=== PATIENT | female | born 1965 | race Caucasian/White ===

== ENCOUNTER 2022-04-10 11:11 | Inpatient (IN) ==
[2022-04-10] MEDS ORDERED: FUROSEMIDE 40 MG/4 ML VIAL IV STA (11:40)
[2022-04-10 11:50] LABS: INR 1.2; PT Patient Result 12.8 SECS (10.5-12.0); Partial Thromboplastin Time 26.3 SECS (23.7-32.9)
[2022-04-10 11:57] LABS: Calcium 8.7 MG/DL (8.5-10.1); Potassium 4.2 MMOL/L (3.5-5.1); Total Protein 7.7 G/DL (6.4-8.2)
[2022-04-10 12:04] LABS: Basophils % 0.4 % (0.0-0.8); Eosinophils # 0.1 10*3/uL (0.0-0.87); Eosinophils % 0.9 % (0.00-10.9); Hematocrit 39.5 VOL% (35.7-47.0); Hemoglobin 11.5 GM/DL (12.0-16.0); Immature Granulocytes % 0.4 %; Immature Granulocytes Absolute 0.03 #; Lymphocytes % 14.6 % (21.3-54.2); Mean Corpuscular HGB Conc 29.1 GM/DL (32-36); Mean Corpuscular Volume 91.2 FL (87-102); Mean Platelet Volume 11.4 FL (9.6-12.0); Monocytes # 0.6 10*3/uL (0.11-0.8); Monocytes % 8.5 % (1.7-12.7); Neutrophils % 75.2 % (38.7-73.9); Platelet Count 187 T/CUMM (130-400); Red Blood Count 4.33 MC/CUMM (3.8-5.5); Red Cell Distribution Width 15.2 % (9.3-17.3)
[2022-04-10] MEDS ORDERED: DOCUSATE SODIUM 100 MG CAPSULE PO PRN (12:48)
[2022-04-10] MEDS ORDERED: GLUCAGON 1 MG VIAL IM PRN (12:48)
[2022-04-10] MEDS ORDERED: MORPHINE 2 MG/1 ML SYRINGE IV PRN (12:48)
[2022-04-10] MEDS ORDERED: ONDANSETRON 4 MG/2 ML VIAL IV PRN (12:48)
[2022-04-10 12:54] LABS: Bacteria,Urine Occasional /HPF (Few); RBC,Urine 1 /HPF (0-4); Squamous Epithelial Cell,Urine Occasional /HPF (0-10)
[2022-04-10 12:55] LABS: Bilirubin,Urine Negative (Negative); Blood, Urine Trace mg/dL (Negative); Glucose,Urine (UA) Negative (Negative); Ketones,Urine Negative (Negative); Nitrite,Urine Negative (Negative); Protein,Urine Negative (Negative); Urine Appearance Clear (Clear); Urine Color Straw (Yellow); Urine Specific Gravity 1.015 (1.001-1.035); Urine Urobilinogen 0.2 eU/dL (<2.0)
[2022-04-10] MEDS ORDERED: ALBUTEROL 2.5 MG/3 ML NEB RESP TX SCH (13:00)
[2022-04-10] MEDS ORDERED: DEXTROSE 10% 250 ML BAG IV PRN (13:02)
[2022-04-10] MEDS: methylPREDNISolone SOD SUC 40 MG/1 ML VIAL IV SCH ×2 (13:20→22:23)
[2022-04-10] MEDS ORDERED: POTASSIUM CHLORIDE RIDER 10 MEQ/100 ML PREMIX IV PRN (15:53)
[2022-04-10] MEDS ORDERED: MAGNESIUM SULF RIDER 2 GM/50 ML PREMIX IV PRN (15:53)
[2022-04-10] MEDS ORDERED: SACUBITRIL/VALSARTAN 49-51 MG TABLET PO SCH (16:00)
[2022-04-10] MEDS: METOPROLOL SUCCINATE XL 25 MG TABLET PO SCH (17:37)
[2022-04-10] MEDS: DAPAGLIFLOZIN 10 MG TABLET PO SCH (17:37)
[2022-04-10] MEDS: SPIRONOLACTONE 25 MG TABLET PO SCH (17:37)
[2022-04-10] MEDS ORDERED: ENOXAPARIN 40 MG/0.4 ML SYRINGE SUBCUT SCH (21:00)
[2022-04-11 05:35] LABS: Calcium 8.8 MG/DL (8.5-10.1); Osmolality,Calculated 273.8 MOS/KG (273-304); Potassium 3.9 MMOL/L (3.5-5.1)
[2022-04-11 05:44] LABS: Albumin 2.6 G/DL (3.4-5.0); Calcium 8.9 MG/DL (8.5-10.1); Potassium 3.9 MMOL/L (3.5-5.1); Risk Ratio 3.66; Thyroid Stimulating Hormone 0.358 uIU/ml (0.358-3.74); Total Protein 7.6 G/DL (6.4-8.2); VLDL Cholesterol 16.8 MG/DL
[2022-04-11 05:53] LABS: Basophils % 0.2 % (0.0-0.8); Immature Granulocytes % 0.7 %; Immature Granulocytes Absolute 0.04 #; Lymphocytes # 0.8 10*3/uL (1.4-4.0); Lymphocytes % 12.9 % (21.3-54.2); Mean Corpuscular Volume 88.3 FL (87-102); Mean Platelet Volume 11.4 FL (9.6-12.0); Monocytes # 0.2 10*3/uL (0.11-0.8); Monocytes % 3.9 % (1.7-12.7); Neutrophils % 82.3 % (38.7-73.9); Platelet Count 189 T/CUMM (130-400); Red Blood Count 4.53 MC/CUMM (3.8-5.5); Red Cell Distribution Width 15.2 % (9.3-17.3); White Blood Count 5.9 T/CUMM (4-12)
[2022-04-11 08:13] LABS: Total Protein (Chem) 8.6 G/DL (6.4-8.3)
[2022-04-11 08:46] LABS: Albumin (SPE) 4.2 G/DL (3.2-5.3); Albumin (SPE) Rel % 48.5 %; Alpha 1 (SPE) 0.2 G/DL (0.1-0.4); Alpha 1 (SPE) Rel % 2.9 %; Alpha 2 (SPE) 0.9 G/DL (0.4-1.0); Alpha 2 (SPE) Rel % 9.9 %; Beta (SPE) 0.8 G/DL (0.5-1.1); Beta (SPE) Rel % 9.3 %; Gamma (SPE) 2.5 G/DL (0.7-1.7); Gamma (SPE) Rel % 29.4 %
[2022-04-11] MEDS ORDERED: FUROSEMIDE 40 MG/4 ML VIAL IV SCH (09:00)
[2022-04-11] MEDS: METOPROLOL SUCCINATE XL 25 MG TABLET PO SCH (10:11)
[2022-04-11] MEDS: DAPAGLIFLOZIN 10 MG TABLET PO SCH (10:11)
[2022-04-11] MEDS: SACUBITRIL/VALSARTAN 49-51 MG TABLET PO SCH ×2 (10:12→21:18)
[2022-04-11] MEDS: SPIRONOLACTONE 25 MG TABLET PO SCH (10:12)
[2022-04-11] MEDS: PANTOPRAZOLE 40 MG TABLET PO SCH (10:12)
[2022-04-11] MEDS: methylPREDNISolone SOD SUC 40 MG/1 ML VIAL IV SCH (10:41)
[2022-04-11] MEDS ORDERED: oxyCODONE/ACETAMINOPHEN 5-325 MG TABLET PO PRN (12:27)
[2022-04-11] MEDS ORDERED: DIAZEPAM 5 MG TABLET PO ONE (13:30)
[2022-04-11] MEDS ORDERED: diphenhydrAMINE CAP 50 MG CAPSULE PO ONE (13:30)
[2022-04-11] MEDS ORDERED: HEPARIN/NACL 0.9% 2 UNITS/ML 2,000 UNIT/1,000 ML BAG IV ONE (14:24)
[2022-04-11] MEDS ORDERED: fentaNYL 100 MCG/2 ML VIAL ONE (14:45)
[2022-04-11] MEDS ORDERED: MIDAZOLAM 2 MG/2 ML VIAL ONE (14:45)
[2022-04-11] MEDS ORDERED: GABAPENTIN 300 MG CAPSULE PO SCH (21:00)
[2022-04-11] MEDS: FERROUS SULFATE 325 MG TABLET PO SCH (21:18)
[2022-04-12 05:59] LABS: Albumin 2.5 G/DL (3.4-5.0); Bilirubin,Total 0.7 MG/DL (0.20-1.00); Calcium 8.4 MG/DL (8.5-10.1); Osmolality,Calculated 279.5 MOS/KG (273-304); Potassium 3.4 MMOL/L (3.5-5.1); Total Protein 6.9 G/DL (6.4-8.2)
[2022-04-12 06:02] LABS: Basophils % 0.2 % (0.0-0.8); Eosinophils % 0.1 % (0.00-10.9); Hematocrit 40.6 VOL% (35.7-47.0); Hemoglobin 12.4 GM/DL (12.0-16.0); Immature Granulocytes % 0.4 %; Immature Granulocytes Absolute 0.04 #; Lymphocytes # 1.7 10*3/uL (1.4-4.0); Lymphocytes % 18.1 % (21.3-54.2); Mean Corpuscular HGB Conc 30.5 GM/DL (32-36); Mean Corpuscular Volume 87.9 FL (87-102); Monocytes % 10.3 % (1.7-12.7); Neutrophils % 70.9 % (38.7-73.9); Platelet Count 204 T/CUMM (130-400); Red Blood Count 4.62 MC/CUMM (3.8-5.5); Red Cell Distribution Width 15.9 % (9.3-17.3); White Blood Count 9.4 T/CUMM (4-12)
[2022-04-12 07:26] LABS: Total Protein 24 Hr Ur Result 346 MG/24HR (0-149.1); Total Volume,Urine 2666 ML (400-2000)
[2022-04-12 07:52] LABS: 24 Hr Protein (Bench) 346 MG/24HR (0-149.1)
[2022-04-12] MEDS ORDERED: POTASSIUM CHLORIDE 20 MEQ TABLET PO ONE (08:30)
[2022-04-12 08:55] LABS: Immunoglobulin A 207 MG/DL (70-400); Immunoglobulin G 1890 MG/DL (700-1600); Immunoglobulin M 267 MG/DL (40-230)
[2022-04-12] MEDS ORDERED: ASPIRIN EC 81 MG TABLET PO SCH (09:00)
[2022-04-12] MEDS ORDERED: carvediloL 6.25 MG TABLET PO SCH (09:00)
[2022-04-12] MEDS: SACUBITRIL/VALSARTAN 49-51 MG TABLET PO SCH (10:09)
[2022-04-12] MEDS: PANTOPRAZOLE 40 MG TABLET PO SCH (10:10)
[2022-04-12] MEDS: DAPAGLIFLOZIN 10 MG TABLET PO SCH (10:10)
[2022-04-12] MEDS: SPIRONOLACTONE 25 MG TABLET PO SCH (10:10)
[2022-04-12] MEDS: FERROUS SULFATE 325 MG TABLET PO SCH (10:10)
[2022-04-12 12:32] VITALS: BP 85/48
[2022-04-13 10:25] LABS: Immunoglobulin A (Chem) 207 MG/DL (70-400); Immunoglobulin G (Chem) 1890 MG/DL (700-1600); Immunoglobulin M (Chem) 267 MG/DL (40-230)
== END 2022-04-12 13:22 | disposition home or self-care (01) | DRG 287 ==
LOC: N.ED 11:11 → N.EDINP 12:49 → SUATTDRO 12:49 → N.EDINP 15:53 → N.TELEN 16:19
PROVIDERS: ADMIT Internal Medicine; ATTEND Hospitalist

== ENCOUNTER 2022-12-03 12:20 | Inpatient (IN) ==
[2022-12-03 13:46] LABS: Basophils # 0.1 10*3/uL (0.0-0.2); Basophils % 0.1 % (0.0-0.8); Eosinophils # 0.1 10*3/uL (0.0-0.87); Eosinophils % 0.2 % (0.00-10.9); Hematocrit 24.9 VOL% (35.7-47.0); Hemoglobin 8.1 GM/DL (12.0-16.0); Immature Granulocytes % 2.6 %; Immature Granulocytes Absolute 0.87 #; Lymphocytes # 1.5 10*3/uL (1.4-4.0); Lymphocytes % 4.5 % (21.3-54.2); Mean Corpuscular HGB Conc 32.5 GM/DL (32-36); Mean Corpuscular Volume 97.6 FL (87-102); Mean Platelet Volume 9.4 FL (9.6-12.0); Monocytes # 1.5 10*3/uL (0.11-0.8); Monocytes % 4.6 % (1.7-12.7); Platelet Count 484 T/CUMM (130-400); Red Blood Count 2.55 MC/CUMM (3.8-5.5); Red Cell Distribution Width 15.7 % (9.3-17.3); White Blood Count 33.37 T/CUMM (4-12)
[2022-12-03 13:52] LABS: Arterial Base Excess iSTAT 1 MMOL/L (-2.5-2.5); Arterial Bicarbonate iSTAT 25.2 MMOL/L (20-26); Arterial O2 Saturation iSTAT 96 % (95-100); Arterial PCO2 iSTAT 37 MM HG (35-48); Arterial PO2 iSTAT 78 MM HG (80-95); Arterial Total CO2 iSTAT 26 MMO/L (23-27); Arterial pH iSTAT 7.438 (7.35-7.45)
[2022-12-03 13:58] LABS: PT Patient Result 10.7 SECS (10.1-12.1); Partial Thromboplastin Time 28.5 SECS (23.7-32.9)
[2022-12-03] MEDS ORDERED: SODIUM CHLORIDE 0.9% 1,000 ML IV STA (14:08)
[2022-12-03 14:14] LABS: Band Neutrophils 1 % (0-10); Lymphocytes 4 % (20-55); Platelet Estimate Increased
[2022-12-03 14:15] LABS: Hypochromia Slight; Polychromasia Slight
[2022-12-03 14:16] LABS: Total Cells Counted 100
[2022-12-03 14:21] LABS: Albumin 2.5 G/DL (3.4-5.0); Bilirubin,Total 2.1 MG/DL (0.20-1.00); Calcium 8.4 MG/DL (8.5-10.1); Osmolality,Calculated 265.9 MOS/KG (273-304); Potassium 4.6 MMOL/L (3.5-5.1); Total Protein 7.2 G/DL (6.4-8.2)
[2022-12-03] MEDS ORDERED: PIPERACILLIN/TAZOBACTAM 3,375 MG in SODIUM CHLORIDE 0.9% 100 ML IV STA (14:51)
[2022-12-03] MEDS ORDERED: cefTRIAXone 1,000 MG in SODIUM CHLORIDE 0.9% 100 ML IV STA (14:51)
[2022-12-03 15:49] LABS: Mucus,Urine Occasional /LPF (Occasional); RBC,Urine 1 /HPF (0-4); Squamous Epithelial Cell,Urine Occasional /HPF (0-10)
[2022-12-03 15:50] LABS: Bilirubin,Urine Negative (Negative); Blood, Urine Negative (Negative); Glucose,Urine (UA) 500 mg/dL (Negative); Ketones,Urine Negative (Negative); Nitrite,Urine Negative (Negative); Protein,Urine Trace mg/dL (Negative); Urine Appearance Clear (Clear); Urine Color Yellow (Yellow); Urine Specific Gravity 1.004 (1.001-1.035); Urine Urobilinogen 0.2 eU/dL (<2.0); Urine pH 5.5 (4.5-8.0)
[2022-12-03] MEDS ORDERED: ACETAMINOPHEN 325 MG TABLET PO PRN (18:01)
[2022-12-03] MEDS ORDERED: ONDANSETRON 4 MG/2 ML VIAL IV PRN (18:01)
[2022-12-03] MEDS ORDERED: ALBUTEROL 2.5 MG/3 ML NEB RESP TX PRN (18:01)
[2022-12-03] MEDS ORDERED: PHENYLEPHRINE DRIP 40 MG/250 ML PREMIX IV PRN (18:01)
[2022-12-03] MEDS: LACTATED RINGERS 1,000 ML IV SCH (18:51)
[2022-12-03] MEDS: ALBUTEROL/IPRATROPIUM 3 ML NEB RESP TX SCH (19:40)
[2022-12-03] MEDS: MEROPENEM 500 MG in SODIUM CHLORIDE 0.9% 100 ML IV SCH (20:29)
[2022-12-03] MEDS: GABAPENTIN 300 MG CAPSULE PO SCH (20:30)
[2022-12-03] MEDS: ENOXAPARIN 40 MG/0.4 ML SYRINGE SUBCUT SCH (20:30)
[2022-12-03] MEDS: VANCOMYCIN INJ 750 MG in SODIUM CHLORIDE 0.9% 250 ML IV SCH (21:13)
[2022-12-03] MEDS: oxyCODONE/ACETAMINOPHEN 5-325 MG TABLET PO PRN (21:20)
[2022-12-03] MEDS ORDERED: SODIUM CHLORIDE 0.9% 500 ML IV ONE (23:00)
[2022-12-03] MEDS ORDERED: HYDROCORTISONE 100 MG VIAL IV ONE (23:30)
[2022-12-04 01:26] LABS: Basophils % 0.1 % (0.0-0.8); Eosinophils # 0.1 10*3/uL (0.0-0.87); Eosinophils % 0.3 % (0.00-10.9); Hematocrit 19.7 VOL% (35.7-47.0); Immature Granulocytes % 2.2 %; Immature Granulocytes Absolute 0.45 #; Lymphocytes # 0.9 10*3/uL (1.4-4.0); Lymphocytes % 4.2 % (21.3-54.2); Mean Corpuscular Volume 94.3 FL (87-102); Mean Platelet Volume 9.2 FL (9.6-12.0); Monocytes # 0.7 10*3/uL (0.11-0.8); Monocytes % 3.6 % (1.7-12.7); Neutrophils % 89.6 % (38.7-73.9); Platelet Count 338 T/CUMM (130-400); Red Blood Count 2.09 MC/CUMM (3.8-5.5); Red Cell Distribution Width 15.8 % (9.3-17.3); White Blood Count 20.14 T/CUMM (4-12)
[2022-12-04 01:27] LABS: Albumin 1.7 G/DL (3.4-5.0); Bilirubin,Total 0.6 MG/DL (0.20-1.00); Calcium 7.6 MG/DL (8.5-10.1); Osmolality,Calculated 266.5 MOS/KG (273-304); Potassium 4.3 MMOL/L (3.5-5.1)
[2022-12-04 01:30] LABS: Hemoglobin 6.1 GM/DL (12.0-16.0)
[2022-12-04] MEDS ORDERED: SODIUM CHLORIDE 0.9% 1,000 ML IV PRN (01:34)
[2022-12-04] MEDS: ALBUTEROL/IPRATROPIUM 3 ML NEB RESP TX SCH ×4 (01:44→19:17)
[2022-12-04 01:50] LABS: Lymphocytes 3 % (20-55); Platelet Estimate Adequate; Total Cells Counted 100
[2022-12-04] MEDS: MEROPENEM 500 MG in SODIUM CHLORIDE 0.9% 100 ML IV SCH ×4 (02:26→20:57)
[2022-12-04] MEDS: LACTATED RINGERS 1,000 ML IV SCH ×3 (03:52→15:06)
[2022-12-04] MEDS: ASPIRIN EC 81 MG TABLET PO SCH (08:42)
[2022-12-04] MEDS: HYDROCORTISONE 10 MG TABLET PO SCH ×4 (08:43→20:57)
[2022-12-04] MEDS: VANCOMYCIN INJ 750 MG in SODIUM CHLORIDE 0.9% 250 ML IV SCH ×2 (08:44→20:55)
[2022-12-04 11:38] LABS: Basophils % 0.1 % (0.0-0.8); Hematocrit 26.9 VOL% (35.7-47.0); Immature Granulocytes % 2.6 %; Immature Granulocytes Absolute 0.53 #; Lymphocytes % 4.8 % (21.3-54.2); Mean Corpuscular HGB Conc 33.8 GM/DL (32-36); Mean Corpuscular Volume 92.8 FL (87-102); Mean Platelet Volume 9.2 FL (9.6-12.0); Monocytes % 5.1 % (1.7-12.7); Neutrophils % 87.4 % (38.7-73.9); Platelet Count 355 T/CUMM (130-400); Red Cell Distribution Width 16.4 % (9.3-17.3)
[2022-12-04 11:39] LABS: Hemoglobin 9.1 GM/DL (12.0-16.0)
[2022-12-04] MEDS: oxyCODONE/ACETAMINOPHEN 5-325 MG TABLET PO PRN ×2 (11:55→20:57)
[2022-12-04 14:09] LABS: Lymphocytes 4 % (20-55); Microcytosis Slight; Total Cells Counted 100
[2022-12-04 19:29] VITALS: BP 119/66
[2022-12-04] MEDS: GABAPENTIN 300 MG CAPSULE PO SCH (20:56)
[2022-12-04] MEDS: ENOXAPARIN 40 MG/0.4 ML SYRINGE SUBCUT SCH ×2 (20:57→22:14)
[2022-12-05] MEDS: ALBUTEROL/IPRATROPIUM 3 ML NEB RESP TX SCH ×4 (00:24→19:31)
[2022-12-05] MEDS: MEROPENEM 500 MG in SODIUM CHLORIDE 0.9% 100 ML IV SCH ×4 (03:13→20:35)
[2022-12-05 05:20] LABS: Basophils % 0.2 % (0.0-0.8); Eosinophils % 0.1 % (0.00-10.9); Hematocrit 26.8 VOL% (35.7-47.0); Hemoglobin 8.9 GM/DL (12.0-16.0); Immature Granulocytes % 3.7 %; Immature Granulocytes Absolute 0.51 #; Lymphocytes % 7.2 % (21.3-54.2); Mean Corpuscular HGB Conc 33.2 GM/DL (32-36); Mean Corpuscular Volume 91.8 FL (87-102); Mean Platelet Volume 9.2 FL (9.6-12.0); Monocytes # 0.6 10*3/uL (0.11-0.8); Monocytes % 4.7 % (1.7-12.7); Neutrophils % 84.1 % (38.7-73.9); Platelet Count 318 T/CUMM (130-400); Red Blood Count 2.92 MC/CUMM (3.8-5.5); Red Cell Distribution Width 16.6 % (9.3-17.3); White Blood Count 13.69 T/CUMM (4-12)
[2022-12-05 05:39] LABS: Albumin 1.7 G/DL (3.4-5.0); Bilirubin,Total 0.4 MG/DL (0.20-1.00); Calcium 8.3 MG/DL (8.5-10.1); Osmolality,Calculated 273.8 MOS/KG (273-304); Potassium 4.2 MMOL/L (3.5-5.1); Total Protein 6.2 G/DL (6.4-8.2)
[2022-12-05 05:49] LABS: Band Neutrophils 2 % (0-10); Hypochromia Slight; Lymphocytes 4 % (20-55); Platelet Estimate Adequate; Total Cells Counted 100
[2022-12-05] MEDS: LACTATED RINGERS 1,000 ML IV SCH (06:36)
[2022-12-05] MEDS: VANCOMYCIN INJ 750 MG in SODIUM CHLORIDE 0.9% 250 ML IV SCH (08:48)
[2022-12-05] MEDS: HYDROCORTISONE 10 MG TABLET PO SCH ×4 (08:49→20:37)
[2022-12-05] MEDS: ASPIRIN EC 81 MG TABLET PO SCH (08:49)
[2022-12-05] MEDS: oxyCODONE/ACETAMINOPHEN 5-325 MG TABLET PO PRN ×2 (08:49→20:46)
[2022-12-05] MEDS: ENOXAPARIN 40 MG/0.4 ML SYRINGE SUBCUT SCH (20:35)
[2022-12-05] MEDS: GABAPENTIN 300 MG CAPSULE PO SCH (20:37)
[2022-12-06] MEDS: ALBUTEROL/IPRATROPIUM 3 ML NEB RESP TX SCH ×2 (01:04→07:08)
[2022-12-06] MEDS: MEROPENEM 500 MG in SODIUM CHLORIDE 0.9% 100 ML IV SCH ×2 (02:56→08:06)
[2022-12-06 05:42] LABS: Basophils % 0.2 % (0.0-0.8); Eosinophils % 0.1 % (0.00-10.9); Hematocrit 27.1 VOL% (35.7-47.0); Hemoglobin 8.7 GM/DL (12.0-16.0); Immature Granulocytes Absolute 0.64 #; Lymphocytes # 0.9 10*3/uL (1.4-4.0); Lymphocytes % 8.4 % (21.3-54.2); Mean Corpuscular HGB Conc 32.1 GM/DL (32-36); Mean Corpuscular Volume 94.8 FL (87-102); Mean Platelet Volume 8.9 FL (9.6-12.0); Monocytes # 0.4 10*3/uL (0.11-0.8); Monocytes % 3.9 % (1.7-12.7); Neutrophils % 81.4 % (38.7-73.9); Platelet Count 312 T/CUMM (130-400); Red Blood Count 2.86 MC/CUMM (3.8-5.5); Red Cell Distribution Width 16.6 % (9.3-17.3); White Blood Count 10.64 T/CUMM (4-12)
[2022-12-06 06:04] LABS: Alanine Aminotransferase 36 U/L (13-56); Albumin 1.8 G/DL (3.4-5.0); Alkaline Phosphatase 186 U/L (45-117); Aspartate Amino Transferase 27 U/L (0-37); Bilirubin,Total < 0.39 MG/DL (0.20-1.00); Blood Urea Nitrogen 12 MG/DL (7-18); Calcium 8.2 MG/DL (8.5-10.1); Carbon Dioxide 26 MMOL/L (21-32); Chloride 105 MMOL/L (98-107); Glucose 106 MG/DL (74-106); Potassium 3.9 MMOL/L (3.5-5.1); Sodium 136 MMOL/L (136-145)
[2022-12-06 06:17] LABS: Lymphocytes 10 % (20-55); Total Cells Counted 100
[2022-12-06 06:18] LABS: Hypochromia 1+; Microcytosis 1+; Platelet Estimate Adequate
[2022-12-06] MEDS: ASPIRIN EC 81 MG TABLET PO SCH (08:04)
[2022-12-06] MEDS: oxyCODONE/ACETAMINOPHEN 5-325 MG TABLET PO PRN (08:05)
== END 2022-12-06 12:09 | disposition home or self-care (01) | DRG 194 ==
LOC: N.ED 12:20 → N.EDINP 15:57 → N.ICU 17:28
PROVIDERS: ADMIT Internal Medicine; ATTEND Internal Medicine